=== PATIENT | female | born 1965 | race Two or more races ===

== ENCOUNTER 2020-02-27 09:10 | Outpatient (CLI) | payer OTHER | END 2020-02-27 09:11 | disposition home or self-care (01) | LOC: SONOGRAMA 09:10 | PROVIDERS: ATTEND Pathology Anatomic Pathology & Clinical Pathology | DX: E04.2 Nontoxic multinodular goiter (principal) ==

== ENCOUNTER 2023-03-10 07:39 | Outpatient (CLI) | payer OTHER | END 2023-03-10 08:03 | disposition home or self-care (01) | LOC: RX STUDY 07:39 | PROVIDERS: ATTEND Pediatrics | DX: K21.9 Gastro-esophageal reflux disease without esophagitis (principal); C73 Malignant neoplasm of thyroid gland ==

== ENCOUNTER 2025-08-21 09:05 | Outpatient (CLI) | payer OTHER | END 2025-08-21 09:11 | disposition home or self-care (01) | LOC: SONOGRAMA 09:05 | PROVIDERS: ATTEND Pathology Anatomic Pathology & Clinical Pathology | DX: R59.0 Localized enlarged lymph nodes (principal); C73 Malignant neoplasm of thyroid gland ==